=== PATIENT | female | born 1995 | race Caucasian/White ===

== ENCOUNTER 2020-06-09 21:33 | Emergency (ER) | payer MEDICAID ==
[~2020-06-09] VITALS: Ht 170.2 cm; Wt 80.0 kg
[2020-06-09 22:29] VITALS: BP 121/76
[2020-06-09] MEDS ORDERED: DIPHENHYDRAMINE 50MG CAPSULE PO ONE (23:15)
[2020-06-09] MEDS ORDERED: NAPR-420 MT (23:20)
[2020-06-09] MEDS ORDERED: IBUPROFEN 600MG TABLET PO ONE (23:45)
== END 2020-06-09 23:44 | disposition home or self-care (01) ==
LOC: ER 21:33
DX: M54.5 Low back pain (principal)
CPT/HCPCS: 81025; 99282; Z7610